=== PATIENT | female | born 1965 | race American Indian/Alaskan Native ===

== ENCOUNTER 2018-04-15 21:05 | Emergency (ER) | payer BC ==
[2018-04-15 22:02] VITALS: RESP 18; BMI 30.7
[2018-04-15 23:19] VITALS: TEMP 98.8
--- NOTE | 2018-04-15 23:19 | ED PDOC ---
Arrival/HPI - General Chief Complaint: Headache Time Seen by Provider: 04/15/18 22:16 Historian: Patient - History of Present Illness Narrative History of Present Illness (Text): 04/15/18 23:16 53 year old female, whose past medical history includes chronic back pain secondary to herniated disc disease, presents to the emergency department for evaluation of headache and leg weakness, 4 days prior. Patient states her headache was left sided and lasted for about 2 days. Patient also informs she began right leg weakness. Patient states she had pain shooting down her right leg. Patient denies any fevers, chills, chest pain, shortness of breath, cough, abdominal pain, nausea, vomiting, diarrhea, or any other complaint. Time/Duration: < week (4 days) Symptom Onset: Gradual Symptom Course: Unchanged Activities at Onset: Light Context: Walking, Home Past Medical History - Provider Review Nursing Documentation Reviewed: Yes - Infectious Disease Hx of Infectious Diseases: None - Tetanus Immunization Tetanus Immunization: Unknown - Cardiac Hx Cardiac Disorders: Yes Hx Hypertension: Yes - Pulmonary Hx Respiratory Disorders: No - HEENT Hx HEENT Disorder: Yes (wears glasses) - Psychiatric Hx Psychophysiologic Disorder: No Hx Anxiety: No Hx Bipolar Disorder: No Hx Depression: No Hx Emotional Abuse: No Hx Hallucinations: No Hx Panic Disorder: No Hx Post Traumatic Stress Disorder: No Hx Psychosis: No Hx Physical Abuse: No Hx Schizophrenia: No Hx Sexual Abuse: No Hx Substance Use: No - Surgical History Hx Tonsillectomy: No Hx Tubal Ligation: Yes - Anesthesia Hx Anesthesia: No Hx Anesthesia Reactions: No Hx Malignant Hyperthermia: No - Suicidal Assessment Feels Threatened In Home Enviroment: No Family/Social History - Physician Review Nursing Documentation Reviewed: Yes Family/Social History: No Known Family HX Smoking Status: Never Smoked Hx Alcohol Use: No Hx Substance Use: No Hx Substance Use Treatment: No Allergies/Home Meds Allergies/Adverse Reactions: Allergies Sulfa (Sulfonamide Antibiotics) Allergy (Verified 04/15/18 22:03) SHORTNESS OF BREATH seafood Allergy (Uncoded 04/15/18 22:07) SHORTNESS OF BREATH Home Medications: Home Meds Medication Instructions Recorded Confirmed Aspirin [Adult Low Dose Aspirin EC] 1 tab PO DAILY 04/15/18 04/15/18 Review of Systems - Physician Review All systems were reviewed & negative as marked: Yes - Review of Systems Constitutional: absent: Fevers, Night Sweats Cardiovascular: absent: Chest Pain Gastrointestinal: absent: Abdominal Pain, Diarrhea, Nausea, Vomiting Neurological: Headache Physical Exam Vital Signs Reviewed: Yes Vital Signs Pulse Resp BP Pulse Ox 04/15/18 22:01 92 H 18 118/78 97 Blood Pressure: Normal Pulse: Regular Respiratory Rate: Normal Appearance: Positive for: Well-Appearing, Non-Toxic, Comfortable Pain Distress: None Mental Status: Positive for: Alert and Oriented X 3 - Systems Exam Head: Present: Atraumatic, Normocephalic Pupils: Present: PERRL Extroacular Muscles: Present: EOMI Conjunctiva: Present: Normal Mouth: Present: Moist Mucous Membranes Neck: Present: Normal Range of Motion Respiratory/Chest: Present: Clear to Auscultation, Good Air Exchange. No: Respiratory Distress, Accessory Muscle Use Cardiovascular: Present: Regular Rate and Rhythm, Normal S1, S2. No: Murmurs Abdomen: No: Tenderness, Distention, Peritoneal Signs Back: Present: Normal Inspection Upper Extremity: Present: Normal Inspection. No: Cyanosis, Edema Lower Extremity: Present: Normal Inspection. No: Edema Neurological: Present: GCS=15, CN II-XII Intact, Speech Normal, Motor Func Grossly Intact, Normal Sensory Function, Normal Cerebellar Funct, Gait Normal, Memory Normal, Other (No pronator drift) Skin: Present: Warm, Dry, Normal Color. No: Rashes Psychiatric: Present: Alert, Oriented x 3, Normal Insight, Normal Concentration Medical Decision Making ED Course and Treatment: 04/15/18 23:39 Impression: 53 year old female presents for evaluation of headache and leg weakness Plan: -- CT Head -- Reassess and disposition Prior Visits: Notes and results from previous visits were reviewed. Progress Notes: - RAD Interpretation Radiology Orders: 04/15/18 23:12 HEAD W/O CONTRAST [CT] Stat - Scribe Statement The provider has reviewed the documentation as recorded by the Dian Appiah Provider Scribe Attestation: All medical record entries made by the Scribe were at my direction and personally dictated by me. I have reviewed the chart and agree that the record accurately reflects my personal performance of the history, physical exam, medical decision making, and the department course for this patient. I have also personally directed, reviewed, and agree with the discharge instructions and disposition. Disposition/Present on Arrival - Present on Arrival Any Indicators Present on Arrival: No History of DVT/PE: No History of Uncontrolled Diabetes: No Urinary Catheter: No History of Decub. Ulcer: No History Surgical Site Infection Following: None - Disposition Have Diagnosis and Disposition been Completed?: Yes Diagnosis: Headache, Paresthesia and pain of right extremity Disposition: HOME/ ROUTINE Disposition Time: 01:54 Patient Plan: Discharge Condition: STABLE Discharge Instructions (ExitCare): Headache, Adult (DC), Paresthesias (DC) Additional Instructions: LYNNE JUDGE, thank you for letting us take care of you today. Your provider was Ernestine Solorio MD and you were treated for MIGRANE LEFT SIDE/RIGHT LEG NUMB. The emergency medical care you received today was directed at your acute symptoms. If you were prescribed any medication, please fill it and take as directed. It may take several days for your symptoms to resolve. Return to the Emergency Department if your symptoms worsen, do not improve, or if you have any other problems. Please contact your doctor in 1-2 days for a f/u visit. Bring any paperwork you were given at discharge with you along with any medications you are taking to your follow up visit. Our treatment cannot replace ongoing medical care by a primary care provider outside of the emergency department. Thank you for allowing the [facility] team to be part of your care today. If you had an X-Ray or CT scan: A Radiologist will review the ED reading if any change in treatment is needed we will contact you. If you had a blood, urine, or wound culture: It will take several days for the results, if any change in treatment is needed we will contact you. If you had an STI test: It will take 48 hours for the results. Please call after 1 week if you have not heard back. Referrals: Nathan Esteban MD [Primary Care Provider] - Follow up with primary Forms: [email or web address] (Nepalese)
[2018-04-16 02:12] VITALS: BP 124/79; PULSE 71; O2SAT 98
--- NOTE | 2018-04-16 08:53 | CT ---
Date of service: 04/16/2018 PROCEDURE: CT HEAD WITHOUT CONTRAST. HISTORY: paresthesias, headache COMPARISON: None available. TECHNIQUE: Axial computed tomography images were obtained through the head/brain without intravenous contrast. Radiation dose: Total exam DLP = 874.97 mGy-cm. This CT exam was performed using one or more of the following dose reduction techniques: Automated exposure control, adjustment of the mA and/or kV according to patient size, and/or use of iterative reconstruction technique. FINDINGS: HEMORRHAGE: No intracranial hemorrhage. BRAIN: No mass effect or edema. No atrophy or chronic microvascular ischemic changes. VENTRICLES: Unremarkable. No hydrocephalus. CALVARIUM: Unremarkable. PARANASAL SINUSES: Unremarkable as visualized. No significant inflammatory changes. MASTOID AIR CELLS: Unremarkable as visualized. No inflammatory changes. OTHER FINDINGS: The report concurs with the preliminary [facility] report IMPRESSION: No acute intracranial findings
== END 2018-04-16 02:11 | disposition home or self-care (01) ==
LOC: ED 21:05
DX: R51 Headache (principal); R20.2 Paresthesia of skin; M79.604 Pain in right leg; I10 Essential (primary) hypertension

== ENCOUNTER 2018-05-27 17:41 | Emergency (ER) | payer BC ==
[2018-05-27 17:41] VITALS: BMI 30.7
[2018-05-27 17:58] VITALS: RESP 18; TEMP 98.2
--- NOTE | 2018-05-27 18:18 | ED PDOC ---
Arrival/HPI - General Chief Complaint: Chest Pain Time Seen by Provider: 05/27/18 17:51 Historian: Patient - History of Present Illness Narrative History of Present Illness (Text): 05/27/18 18:15 53 F with pmh of transient hypertension presents with cc of intermittent, middle localized chest pain w/ episode of transient SOB earlier today. Patient also complains of an episode of subjective fever but attributes subjective fever and SOB symptoms with her menopause. Patient denies any chills, headache, dizziness, dyspnea on exertion, cough, abdominal pain, nausea, vomiting, diarrhea, back pain, neck pain, or any other complaint. Patient currently have no complains. Time/Duration: 4-6 hours Symptom Onset: Sudden Symptom Course: Unchanged Activities at Onset: Light Context: Home Past Medical History - Provider Review Nursing Documentation Reviewed: Yes - Infectious Disease Hx of Infectious Diseases: None - Tetanus Immunization Tetanus Immunization: Unknown - Reproductive Menopause: Yes - Cardiac Hx Cardiac Disorders: Yes Hx Hypertension: Yes - Pulmonary Hx Respiratory Disorders: No - HEENT Hx HEENT Disorder: Yes (wears glasses) - Psychiatric Hx Psychophysiologic Disorder: No Hx Anxiety: No Hx Bipolar Disorder: No Hx Depression: No Hx Emotional Abuse: No Hx Hallucinations: No Hx Panic Disorder: No Hx Post Traumatic Stress Disorder: No Hx Psychosis: No Hx Physical Abuse: No Hx Schizophrenia: No Hx Sexual Abuse: No Hx Substance Use: No - Surgical History Hx Tonsillectomy: No Hx Tubal Ligation: Yes - Anesthesia Hx Anesthesia: No Hx Anesthesia Reactions: No Hx Malignant Hyperthermia: No - Suicidal Assessment Feels Threatened In Home Enviroment: No Family/Social History - Physician Review Nursing Documentation Reviewed: Yes Family/Social History: Unknown Family HX Smoking Status: Never Smoked Hx Alcohol Use: No Hx Substance Use: No Hx Substance Use Treatment: No Allergies/Home Meds Allergies/Adverse Reactions: Allergies Sulfa (Sulfonamide Antibiotics) Allergy (Verified 04/15/18 22:03) SHORTNESS OF BREATH seafood Allergy (Uncoded 04/15/18 22:07) SHORTNESS OF BREATH Home Medications: Home Meds Medication Instructions Recorded Confirmed Aspirin [Adult Low Dose Aspirin EC] 1 tab PO DAILY 04/15/18 05/27/18 Review of Systems - Physician Review All systems were reviewed & negative as marked: Yes - Review of Systems Constitutional: Normal Eyes: Normal ENT: Normal Respiratory: SOB Cardiovascular: Chest Pain Gastrointestinal: Normal Genitourinary Female: Normal Musculoskeletal: Normal Skin: Normal Neurological: Normal Endocrine: Normal Hemo/Lymphatic: Normal Psychiatric: Normal Physical Exam - Physical Exam Narrative Physical Exam (Text): 05/27/18 18:20 Gen: VS reviewed, alert, well developed, well nourished, nontoxic, mild distress. ENT: normal pharynx. Eye: EOMI, PERRL. Neck: no JVD, supple, no adenopathy. CV: regular rate, regular rhythm, no rubs, no murmur, no gallops, S1, S2, pulses equal and strong. Pulm: no distress, clear to auscultation, no wheeze, no rhonchi, breath sounds equal, no rales. Abd: soft, nontender, no guarding, no rebound, no rigidity, normal bowel sounds. Ext: no edema. Skin: good color, no rash, no cyanosis. Psych: responds appropriately to questions, normal affect. Neuro: oriented x 3, CN2-12 intact grossly, motor intact, sensation intact. Vital Signs Temp Pulse Resp BP Pulse Ox 05/27/18 17:57 98.2 F 82 18 116/66 98 Medical Decision Making ED Course and Treatment: 05/27/18 18:18 Impression: 53 F presents with cc of intermittent, localized chest pain w/ episode of SOB since today Plan: -- Labs -- EKG -- Chest X-ray -- Reassess and disposition Prior Visits: Notes and results from previous visits were reviewed. Patient was last seen in the emergency department on Progress Notes: 05/27/18 19:56 patient feels well and ready to go home. with three days of chest pain and negative troponin and normal ekg, with negative "stress test 1 year ago" as per the patient, patient appears stable for discharge and to follow up with cardiology. patient understands and is agreeable to plan and will make the appropriate follow up. patient understands to return immediately for any new or worsening symptoms. - RAD Interpretation Narrative RAD Interpretations (Text): 05/27/18 19:05 Chest X Ray -- No active pulmonary disease Radiology Orders: 05/27/18 18:00 CHEST PORTABLE [RAD] Stat [employer] Specialist: Radiologist - EKG Interpretation EKG Interpretation (Text): 05/27/18 17:51 NSR @ 86 bpm, nml qrs, nml axis, no acute sttw abn. Interpreted by ED Physician: Yes Type: 12 lead EKG - Scribe Statement The provider has reviewed the documentation as recorded by the Dian Lucero All medical record entries made by the Joeibe were at my direction and personally dictated by me. I have reviewed the chart and agree that the record accurately reflects my personal performance of the history, physical exam, medical decision making, and the department course for this patient. I have also personally directed, reviewed, and agree with the discharge instructions and disposition. Disposition/Present on Arrival - Present on Arrival Any Indicators Present on Arrival: No History of DVT/PE: No History of Uncontrolled Diabetes: No Urinary Catheter: No History of Decub. Ulcer: No History Surgical Site Infection Following: None - Disposition Have Diagnosis and Disposition been Completed?: Yes Diagnosis: Chest pain Disposition: HOME/ ROUTINE Disposition Time: 19:57 Patient Plan: Discharge Patient Problems: Current Active Problems Problem Status Onset Chest pain Acute Condition: STABLE Discharge Instructions (ExitCare): Chest Pain, Chest Pain (ED) Additional Instructions: keep taking the baby aspirin. follow up with the road cutter as soon as possible-call tomorrow to make an appointment. return for any new or worsening symptoms. Referrals: Paty Amaya MD [Staff Provider] - Follow up with primary Marina Tyson MD [Medical Doctor] - Follow up with primary Director Medicaid Service [Outside] - Follow up with primary Forms: [facility] (Yoruba), WORK NOTE
[2018-05-27 18:24] LABS: BASO # 0.04 K/mm3 (0.0-2.0); BASO % 0.6 % (0.0-3.0); EOS # 0.1 (0.0-0.7); HEMOGLOBIN 13.4 g/dL (12.0-16.0); LYMPH # 3.4 (1.2-3.4); LYMPH % 55.4 % (22.0-35.0); MEAN CORPUSCULAR HEMOGLOBIN 25.9 pg (25.0-35.0); MEAN CORPUSCULAR HGB CONC 32.8 g/dl (31.0-37.0); MEAN PLATELET VOLUME 10.3 fl (7.0-11.0); MONO # 0.4 (0.1-0.6); MONO % 5.7 % (1.0-6.0); RBC 5.18 10^6/uL (3.5-6.1); RED CELL DISTRIBUTION WIDTH 14.1 % (11.5-14.5); WHITE BLOOD COUNT 6.2 10^3/uL (4.5-11.0)
[2018-05-27 18:32] LABS: INR 1.05; PARTIAL THROMBOPLASTIN TIME 33.1 Seconds (26.9-38.3); PROTHROMBIN TIME 11.6 SECONDS (9.4-12.5)
--- NOTE | 2018-05-27 18:32 | RAD ---
Date of service: 05/27/2018 HISTORY: chest pain COMPARISON: No prior. FINDINGS: LUNGS: The lungs are well inflated and clear. PLEURA: No pleural effusions or pneumothorax. CARDIOVASCULAR: The heart is normal in size. No aortic atherosclerotic calcifications present. OSSEOUS STRUCTURES: Within normal limits for the patient's age. VISUALIZED UPPER ABDOMEN: Normal. OTHER FINDINGS: None. IMPRESSION: No active pulmonary disease.
[2018-05-27 18:33] LABS: D DIMER < 200 ng/mlDDU (0-243)
[2018-05-27 18:34] LABS: ALB/GLOB RATIO 1.3 (1.1-1.8); ALBUMIN 4.1 g/dL (3.0-4.8); ALT/SGPT 31 U/L (7-56); AST/SGOT 28 U/L (14-36); BLOOD UREA NITROGEN 16 mg/dL (7-21); CALCIUM 9.3 mg/dL (8.4-10.5); GFR NON-AFRICAN AMERICAN > 60; HDL CHOLESTEROL 51 mg/dL (29-60)
[2018-05-27 18:45] LABS: LDL CHOLESTEROL 104 mg/dL (0-129)
[2018-05-27 20:52] VITALS: BP 118/76; PULSE 85; O2SAT 100
--- NOTE | 2018-05-28 09:22 | CARD ---
APPROVED REPORT Date of service: 05/27/2018 EKG Measurement Heart [id number] <Conclusion> Normal sinus rhythm Normal ECG
== END 2018-05-27 20:20 | disposition home or self-care (01) ==
LOC: ED 17:41
DX: R07.9 Chest pain, unspecified (principal); I10 Essential (primary) hypertension